=== PATIENT | male | born 1975 | race Caucasian/White ===

== ENCOUNTER 2019-05-17 17:42 | Outpatient (REF) | payer OTHER, SELFPAY ==
[2019-05-17 21:17] LABS: Abs Immature Grans 0.03 k/cumm (0.0-0.09); Absolute Basophil Count 0.06 k/cumm (0.0-0.2); Absolute Eosinophil Count 0.71 k/cumm (0.0-0.7); Absolute Lymphocyte Count 3.01 k/cumm (1.2-3.4); Absolute Monocyte Count 0.72 k/cumm (0.11-0.7); Absolute Neutrophil Count 4.72 k/cumm (1.2-6.7); Basophils % 0.6; Eosinophils % 7.7; HCT 48.1 % (40.0-50.0); Immature Grans % 0.3; Lymphocytes % 32.5; Mean Corp. HGB Concentration 33.3 g/dL (32.0-36.0); Mean Corpuscular Hemoglobin 29.3 pg (27.0-33.0); Mean Corpuscular Volume 87.9 fL (80-95); Mean Platelet Volume 11.3 fL (8.0-11.0); Monocytes % 7.8; Neutrophils % 51.1; Platelet Count 283 x1000/uL (130-400); RBC 5.47 m/cumm (4.50-6.00); RBC Distribution Width 13.7 % (11.8-14.1); White Blood Cell Count 9.25 k/cumm (4.4-10.8)
[2019-05-17 21:37] LABS: ALT 44 U/L (16-63); AST 29 U/L (15-37); Albumin 3.8 g/dL (3.4-5.0); Alkaline Phosphatase 76 U/L (46-116); Anion Gap 7.5 mmol/L (3-11); BUN 12 mg/dL (7-18); Bilirubin, Total 0.3 mg/dL (0.2-1.0); CO2 28.5 mmol/L (21.0-32.0); CREATININE 1.08 mg/dL (0.70-1.30); Calcium 9.3 mg/dL (8.5-10.1); Calculated LDL 131 mg/dL; Chloride 106 mmol/L (98-107); Cholesterol 199 mg/dL (50-200); Glucose 100 mg/dL (70-100); HDL Cholesterol 44 mg/dL (40-60); Potassium 4.6 mmol/L (3.5-5.1); Sodium 142 mmol/L (136-145); Triglyceride 123 mg/dL (30-150)
== END 2019-05-17 18:02 ==
LOC: NCHCN 17:42
PROVIDERS: Visit Provider Internal Medicine
DX: L40.9 Psoriasis, unspecified (principal); Z13.220 Encounter for screening for lipoid disorders; Z13.228 Encounter for screening for other metabolic disorders
CPT/HCPCS: 80053; 80061; 85025

== ENCOUNTER 2019-08-15 21:57 | Outpatient (REF) | payer OTHER, SELFPAY ==
[2019-08-15 21:43] LABS: HCT 45.5 % (40.0-50.0); HGB 15.2 g/dL (13.5-17.5); Mean Corp. HGB Concentration 33.4 g/dL (32.0-36.0); Mean Corpuscular Hemoglobin 29.4 pg (27.0-33.0); Mean Platelet Volume 11.7 fL (8.0-11.0); Platelet Count 291 x1000/uL (130-400); RBC 5.17 m/cumm (4.50-6.00); RBC Distribution Width 13.6 % (11.8-14.1); White Blood Cell Count 10.17 k/cumm (4.4-10.8)
[2019-08-15 21:58] LABS: ALT 28 U/L (16-63); AST 20 U/L (15-37); Albumin 3.8 g/dL (3.4-5.0); Alkaline Phosphatase 73 U/L (46-116); Anion Gap 6.3 mmol/L (3-11); BUN 14 mg/dL (7-18); Bilirubin, Total 0.3 mg/dL (0.2-1.0); CO2 29.7 mmol/L (21.0-32.0); CREATININE 1.15 mg/dL (0.70-1.30); Chloride 107 mmol/L (98-107); Glucose 98 mg/dL (74-106); Potassium 4.1 mmol/L (3.5-5.1); Sodium 143 mmol/L (136-145); Total Protein 6.6 g/dL (6.4-8.2)
== END 2019-08-15 22:17 ==
LOC: NCHCN 21:57
PROVIDERS: Visit Provider Nurse Practitioner Family
DX: L40.9 Psoriasis, unspecified (principal)
CPT/HCPCS: 80053; 85027

== ENCOUNTER 2020-02-22 13:12 | Outpatient (REF) | payer OTHER, SELFPAY ==
[2020-02-22 21:32] LABS: HCT 45.1 % (40.0-50.0); HGB 15.1 g/dL (13.5-17.5); MCH 29.5 pg (27.0-33.0); MCHC 33.5 % (32.0-36.0); MCV 88.3 fL (80-95); MPV 11.9 fL (8.0-11.0); Platelet Count 260 10^3/uL (130-400); RBC 5.11 10^6/uL (4.36-5.78); RDW 13.5 % (11.8-14.1); RDW-SD 43.4 fL; WBC 7.84 10^3/uL (4.4-10.8)
[2020-02-22 21:44] LABS: ALT 42 U/L (16-63); AST 29 U/L (15-37); Albumin 3.8 g/dL (3.4-5.0); Alkaline Phosphatase 65 U/L (46-116); Anion Gap 9.9 mmol/L (3-11); BUN 11 mg/dL (7-18); Bilirubin, Total 0.3 mg/dL (0.2-1.0); CO2 26.1 mmol/L (21.0-32.0); CREATININE 1.14 mg/dL (0.70-1.30); Calcium 8.9 mg/dL (8.5-10.1); Chloride 104 mmol/L (98-107); Glucose 128 mg/dL (74-106); Potassium 3.9 mmol/L (3.5-5.1); Sodium 140 mmol/L (136-145); Total Protein 6.6 g/dL (6.4-8.2)
== END 2020-02-22 13:32 ==
LOC: NCHCN 13:12
PROVIDERS: PCP Internal Medicine; Visit Provider Internal Medicine
DX: Z51.81 Encounter for therapeutic drug level monitoring (principal)
CPT/HCPCS: 80053; 85027

== ENCOUNTER 2020-04-07 09:53 | Outpatient (REF) | payer OTHER, SELFPAY ==
[2020-04-10 12:49] LABS: SARS-CoV-2 RNA Undetected (Undetected); SARS-CoV-2 Specimen Source Nasopharynx
== END 2020-04-07 10:13 ==
LOC: NCHCN 09:53
PROVIDERS: PCP Internal Medicine; Visit Provider Internal Medicine
DX: Z11.59 Encounter for screening for other viral diseases (principal)
CPT/HCPCS: U0003

== ENCOUNTER 2020-05-27 16:02 | Outpatient (REF) | payer OTHER, SELFPAY ==
[2020-05-27 20:50] LABS: Abs Immature Grans 0.03 10^3/uL (0.0-0.06); Absolute Basophil Count 0.06 10^3/uL (0.0-0.2); Absolute Eosinophil Count 0.35 10^3/uL (0.0-0.7); Absolute Lymphocyte Count 2.79 10^3/uL (1.2-3.4); Absolute Monocyte Count 0.73 10^3/uL (0.1-0.8); Absolute Neutrophil Count 4.08 10^3/uL (1.2-6.7); Basophils % 0.7; Eosinophils % 4.4; HCT 46.4 % (40.0-50.0); HGB 15.2 g/dL (13.5-17.5); Immature Grans % 0.4; Lymphocytes % 34.7; MCH 29.3 pg (27.0-33.0); MCHC 32.8 % (32.0-36.0); MCV 89.4 fL (80-95); MPV 11.6 fL (8.0-11.0); Monocytes % 9.1; Neutrophils % 50.7; Nucleated RBC 0 %; Platelet Count 267 10^3/uL (130-400); RBC 5.19 10^6/uL (4.36-5.78); RDW 12.7 % (11.8-14.1); RDW-SD 41.9 fL; WBC 8.04 10^3/uL (4.4-10.8)
[2020-05-27 21:13] LABS: ALT 38 U/L (16-63); AST 26 U/L (15-37); Albumin 3.7 g/dL (3.4-5.0); Alkaline Phosphatase 69 U/L (46-116); Anion Gap 9.3 mmol/L (3-11); BUN 11 mg/dL (7-18); Bilirubin, Total 0.4 mg/dL (0.2-1.0); CO2 24.7 mmol/L (21.0-32.0); Calcium 8.8 mg/dL (8.5-10.1); Chloride 104 mmol/L (98-107); Glucose 110 mg/dL (74-106); Potassium 4.2 mmol/L (3.5-5.1); Sodium 138 mmol/L (136-145); Total Protein 6.5 g/dL (6.4-8.2)
== END 2020-05-27 16:22 ==
LOC: NCHCN 16:02
PROVIDERS: PCP Internal Medicine; Visit Provider Internal Medicine
DX: Z51.81 Encounter for therapeutic drug level monitoring (principal); L40.9 Psoriasis, unspecified
CPT/HCPCS: 80053; 85025

== ENCOUNTER 2020-09-08 16:28 | Outpatient (REF) | payer OTHER, SELFPAY ==
[2020-09-08 13:21] LABS: Abs Immature Grans 0.01 10^3/uL (0.0-0.06); Absolute Basophil Count 0.06 10^3/uL (0.0-0.2); Absolute Eosinophil Count 0.33 10^3/uL (0.0-0.7); Absolute Lymphocyte Count 3.07 10^3/uL (1.2-3.4); Absolute Monocyte Count 0.64 10^3/uL (0.1-0.8); Absolute Neutrophil Count 3.44 10^3/uL (1.2-6.7); Basophils % 0.8; Eosinophils % 4.4; HCT 46.8 % (40.0-50.0); HGB 15.4 g/dL (13.5-17.5); Immature Grans % 0.1; Lymphocytes % 40.7; MCH 29.3 pg (27.0-33.0); MCHC 32.9 % (32.0-36.0); MCV 89.1 fL (80-95); MPV 11.1 fL (8.0-11.0); Monocytes % 8.5; Neutrophils % 45.5; Nucleated RBC 0 %; Platelet Count 272 10^3/uL (130-400); RBC 5.25 10^6/uL (4.36-5.78); RDW 13.2 % (11.8-14.1); RDW-SD 42.6 fL; WBC 7.55 10^3/uL (4.4-10.8)
[2020-09-08 13:36] LABS: ALT 38 U/L (16-63); AST 22 U/L (15-37); Albumin 3.7 g/dL (3.4-5.0); Alkaline Phosphatase 83 U/L (46-116); Anion Gap 7.5 mmol/L (3-11); BUN 12 mg/dL (7-18); Bilirubin, Total 0.3 mg/dL (0.2-1.0); CO2 25.5 mmol/L (21.0-32.0); CREATININE 1.1 mg/dL (0.70-1.30); Chloride 106 mmol/L (98-107); Glucose 127 mg/dL (74-106); Sodium 139 mmol/L (136-145); Total Protein 6.5 g/dL (6.4-8.2)
== END 2020-09-08 16:29 | disposition home or self-care (01) ==
LOC: NCHCN 16:28
PROVIDERS: PCP Internal Medicine; Visit Provider Internal Medicine
DX: Z51.81 Encounter for therapeutic drug level monitoring (principal); L40.9 Psoriasis, unspecified
CPT/HCPCS: 80053; 85025

== ENCOUNTER 2023-03-17 08:14 | Outpatient (REF) | payer BC, SELFPAY ==
--- OUTSIDE RECORDS SUMMARY | 2023-03-17 08:23 | XMS_ITS | CCD ---
Author Name Unknown Address [address] [place] [address] [phone] Organization Unknown Address [address] [place] [address] [phone] Care Team Providers Care Member Service Specialist Name Role Phone SUELLEN PIERRE Attending Physician [phone] Vital Signs Unknown or Not Available. Allergies Unknown or Not Available. Procedures Unknown or Not Available. History of Immunizations Unknown or Not Available. Problems Problem Code Start Date Resolved Date Status Psoriasis [id number] 03/15/2023 Resolved Results COMPREHENSIVE METABOLIC PANE L (CMP) - Collect Date/Time: 11/05/2022 16:14 Test Name Code Test Result Test Units Test Ref Rang e GLUCOSE 2345-7 118 mg/dL L=70 H=116 BUN 3094-0 20 mg/dL L=6 H=25 CREATININE 2160-0 1.13 mg/dL L=0.67 H=1.17 SODIUM SERUM 2951-2 139 mmol/L L=136 H=145 POTASSIUM SERUM 2823-3 4.2 mmol/L L=3.4 H=5 .2 CHLORIDE SERUM 2075-0 103 mmol/L L=96 H=110 CARBON DIOXIDE (CO2) 2028-9 25 mmol/L L=22 H=34 ANION GAP 47314-0 11.0 mmol/L CALCIUM SERUM 89766-4 9.0 mg/dL L=8.2 H=10. 2 BILIRUBIN TOTAL 1975-2 0.5 mg/dL L=0.0 H=1 .3 ALK. PHOS. 6768-6 69 U/L L=46 H=116 SGOT (AST) 1920-8 23 U/L L=15 H=37 SGPT (ALT) 1742-6 31 U/L L=12 H=78 TOTAL PROTEIN 2885-2 6.7 gm/dL L=6.0 H=8.0 ALBUMIN 1751-7 3.8 gm/dL L=3.4 H=5.0 AGE 47 years eGFR (non-Afr.Amer.) 20820-8 70 mL/min eGFR (Afr-Palauan) 22412-4 85 mL/min CBC W/ DIFFERENTIAL* - [facility] ct Date/Time: 11/05/2022 16:14 Test Name Code Test Result Test Units Test Ref Rang e WBC 6690-2 9.21 th/cmm L=5.00 H=10.00 NEUT % 46.1 % L=40.0 H=80.0 LYMPH % 42.8 % L=10.0 H=50.0 MONO % 40717-4 6.8 % L=2.0 H=12.0 EOS % 3.4 % L=0.0 H=8.0 BASO % 0.7 % L=0.0 H=3.0 IG % 2514-8 0.2 % L=0.0 H=1.1 NRBC % 71441-2 0.0 % L=0.0 H=0.0 NEUT abs count 751-8 4.3 th/cmm L=1.6 H=8. 4 LYMPH abs count 731-0 3.9 th/cmm L=1.5 H=4 .0 MONO abs count 742-7 0.6 th/cmm L=0.2 H=1. 0 EOS abs count 711-2 0.3 th/cmm L=0.0 H=0.5 BASO abs count 704-7 0.1 th/cmm L=0.0 H=0. 2 IG abs count 03631-7 0.0 th/cmm L=0.0 H=0.1 NRBC abs count 48242-7 0.0 mil/cmm L=0.0 H=0. 0 RBC 789-8 5.32 mil/cmm L=4.30 H=6.20 HEMOGLOBIN 718-7 15.3 gm/dL L=13.0 H=17.0 HEMATOCRIT 4544-3 46 % L=45 H=52 MCV 787-2 86 fL L=82 H=92 MCH 785-6 28.8 pg L=27.0 H=31.0 MCHC 786-4 33.4 % L=32.0 H=36.0 RDW-SD 788-0 40.0 fL L=39.0 H=49.0 PLATELET COUNT 777-3 262 th/cmm L=150 H=45 0 Active Medications Unknown or Not Available. Medications Administered During Visit Unknown or Not Available. Encounters Encounter Diagnosis Diagnosis Code Start Date Psoriasis 1908399 11/05/2022 Social History Smoking Status Code Start Date End Date Unknown if ever smoked [id number] Patient Decision Aids Unknown or Not Available. Discharge Instructions You were admitted to [facility] on 11/05/2022 16:09 with a principal diagnosis of Psoriasis, unspecified You had the following tests done:CBC W/ DIFFERENTIAL*COMPREHENSIVE METABOLIC PANEL (CMP) You were discharged from [facility] on 11/05/2022 16:09 Should you have any questions prior to discharge, please contact a member of your healthcare team. If you have left the hospital and have any questions, please contact your primary care physician. Chief Complaint and Reason For Visit Unknown or Not Available. Function Status Unknown or Not Available. Plan of Care Unknown or Not Available. Referral/Transition of Care Unknown or Not Available.
--- OUTSIDE RECORDS SUMMARY | 2023-03-17 08:23 | XMS_ITS | CCD ---
Author Name Unknown Address [address] [place] [address] [phone] Organization Unknown Address [address] [place] [address] [phone] Care Team Providers Care Display Coordinator Name Role Phone ZULAY ALVARADO Attending Physician [phone] ZULAY ALVARADO Er Physician [phone] DEV Plunkett Registered Nurse [phone] Vital Signs Vital Sign Value Unit Date/Time Recent/Initial ? BMI (Body Mass Index) 26.25 kg/m^2 03/15/2023 16: 47 Initial VS Weight Measured 210 lbs 03/15/2023 16:47 Ini tial VS Height 75 in 03/15/2023 16:47 Initial VS BSA (Body Surface Area) 2.25 m^2 03/15/2023 1 6:47 Initial VS BP Systolic 151 mmHg 03/15/2023 16:47 Initial VS BP Diastolic 93 mmHg 03/15/2023 16:47 Initia l VS Respiratory Rate 18 bpm 03/15/2023 16:47 In itial VS Heart Rate 81 bpm 03/15/2023 16:47 Initial VS O2 % BldC Oximetry 99 % 03/15/2023 16:47 Initial VS Body Temperature 36.8 degrees 03/15/2023 16:47 In itial VS Allergies Allergy Code Allergy Type Reaction Status No Known Drug Allergies 0 No known drug allergies Active Procedures Unknown or Not Available. History of Immunizations Unknown or Not Available. Problems Problem Code Start Date Resolved Date Status Psoriasis 4189051 03/15/2023 Resolved Results Unknown or Not Available. Active Medications Unknown or Not Available. Medications Administered During Visit Unknown or Not Available. Encounters Unknown or Not Available. Social History Smoking Status Code Start Date End Date Unknown if ever smoked 828053168 Patient Decision Aids Unknown or Not Available. Discharge Instructions You were admitted to [facility] on 03/15/2023 16:32 You were discharged from [facility] on 03/15/2023 17:51 Should you have any questions prior to discharge, please contact a member of your healthcare team. If you have left the hospital and have any questions, please contact your primary care physician. Chief Complaint and Reason For Visit Chief Complaint Date of Onset LT ANKLE INJURY Function Status Unknown or Not Available. Plan of Care Unknown or Not Available. Referral/Transition of Care Unknown or Not Available.
[2023-03-17 15:48] LABS: HCT 45.7 % (40.0-50.0); HGB 15.7 g/dL (13.5-17.5); MCH 30.6 pg (27.0-33.0); MCHC 34.4 % (32.0-36.0); MCV 89 fL (80-95); MPV 11.6 fL (8.0-11.0); Platelet Count 260 10^3/uL (130-400); RBC 5.13 10^6/uL (4.36-5.78); RDW 13.4 % (11.8-14.1); RDW-SD 43.6 fL; WBC 9.86 10^3/uL (4.4-10.8)
[2023-03-17 16:48] LABS: ALT 33 U/L (16-63); AST 24 U/L (15-37); Albumin 3.5 g/dL (3.4-5.0); Alkaline Phosphatase 68 U/L (46-116); Anion Gap 8.2 mmol/L (3-11); BUN 18 mg/dL (7-18); Bilirubin, Total 0.4 mg/dL (0.2-1.0); CO2 24.8 mmol/L (21.0-32.0); Calculated LDL 123 mg/dL (<100); Chloride 106 mmol/L (98-107); Cholesterol 181 mg/dL (<200); Estimated GFR 94.59 (mL/min/1.73m2); Glucose 105 mg/dL (74-106); HDL Cholesterol 47 mg/dL (40-60); Potassium 4.2 mmol/L (3.5-5.1); Sodium 139 mmol/L (136-145); Total Protein 6.8 g/dL (6.4-8.2); Triglyceride 57 mg/dL (<150)
== END 2023-03-17 08:15 | disposition home or self-care (01) ==
LOC: NCHCN 08:14
PROVIDERS: PCP Internal Medicine; Visit Provider Internal Medicine
DX: E78.5 Hyperlipidemia, unspecified (principal); F17.210 Nicotine dependence, cigarettes, uncomplicated; Z51.81 Encounter for therapeutic drug level monitoring
CPT/HCPCS: 80053; 80061; 85027

== ENCOUNTER 2023-08-01 11:28 | Outpatient (REF) | payer BC, SELFPAY ==
--- OUTSIDE RECORDS SUMMARY | 2023-08-01 11:31 | XMS_ITS | CCD ---
Author Name Unknown Address [address] [place] [address] [phone] Organization Unknown Address [address] [place] [address] [phone] Care Team Providers Care Texture Artist Name Role Phone SUELLEN PIERRE Attending Physician [phone] Vital Signs Unknown or Not Available. Allergies Unknown or Not Available. Procedures Unknown or Not Available. History of Immunizations Unknown or Not Available. Problems Problem Code Start Date Resolved Date Status Psoriasis 0189314 03/15/2023 Resolved Results COMPREHENSIVE METABOLIC PANE L [...] 2028-9 25 mmol/L L=22 H=34 ANION GAP 71096-7 11.0 mmol/L CALCIUM SERUM 77275-3 9.0 mg/dL L=8.2 H=10. 2 BILIRUBIN TOTAL 1975-2 0.5 mg/dL L=0.0 H=1 .3 ALK. PHOS. 6768-6 69 U/L L=46 H=116 SGOT (AST) 1920-8 23 U/L L=15 H=37 SGPT (ALT) 1742-6 31 U/L L=12 H=78 TOTAL PROTEIN 2885-2 6.7 gm/dL L=6.0 H=8.0 ALBUMIN 1751-7 3.8 gm/dL L=3.4 H=5.0 AGE 47 years eGFR (non-Afr.Amer.) 31750-9 70 mL/min eGFR (Afr-Tongan) 41276-7 85 mL/min CBC W/ DIFFERENTIAL* - [facility] ct Date/Time: 11/05/2022 16:14 Test Name Code Test Result Test Units Test Ref Rang e WBC 6690-2 9.21 th/cmm L=5.00 H=10.00 NEUT % 46.1 % L=40.0 H=80.0 LYMPH % 42.8 % L=10.0 H=50.0 MONO % 47846-0 6.8 % L=2.0 H=12.0 EOS % 3.4 % L=0.0 H=8.0 BASO % 0.7 % L=0.0 H=3.0 IG % 2514-8 0.2 % L=0.0 H=1.1 NRBC % 03159-3 0.0 % L=0.0 H=0.0 NEUT abs count 751-8 4.3 th/cmm L=1.6 H=8. 4 LYMPH abs count 731-0 3.9 th/cmm L=1.5 H=4 .0 MONO abs count 742-7 0.6 th/cmm L=0.2 H=1. 0 EOS abs count 711-2 0.3 th/cmm L=0.0 H=0.5 BASO abs count 704-7 0.1 th/cmm L=0.0 H=0. 2 IG abs count 27556-5 0.0 th/cmm L=0.0 H=0.1 NRBC abs count 88063-1 0.0 mil/cmm L=0.0 H=0. 0 RBC 789-8 5.32 mil/cmm L=4.30 H=6.20 HEMOGLOBIN 718-7 15.3 gm/dL L=13.0 H=17.0 HEMATOCRIT 4544-3 46 % L=45 H=52 MCV 787-2 86 fL L=82 H=92 MCH 785-6 28.8 pg L=27.0 H=31.0 MCHC 786-4 33.4 % L=32.0 H=36.0 RDW-SD 788-0 40.0 fL L=39.0 H=49.0 PLATELET COUNT 777-3 262 th/cmm L=150 H=45 0 Active Medications Medication Code Dose Units Frequency Route Modificatio n Start Date/Time Penicillin VK 500MG Oral Tablet 752934 1 TABLET THREE TIMES A DAY ORAL 06/16/2023 22:31 Prescription Detail TAKE 1 TABLET ORAL THREE TIMES A DAY Medications Administered During Visit Unknown or Not Available. Encounters Encounter Diagnosis Diagnosis Code Start Date Psoriasis 7659658 11/05/2022 Social History Smoking Status Code Start Date End Date Unknown if ever smoked 898344823 Patient Decision Aids Unknown or Not Available. Discharge Instructions You were admitted to [facility] on 11/05/2022 16:09 with a principal diagnosis of Psoriasis, unspecified You had the following tests done:CBC W/ DIFFERENTIAL*COMPREHENSIVE METABOLIC PANEL (CMP) You were discharged from [facility] on 11/05/2022 16:09 Should you have [...]
--- OUTSIDE RECORDS SUMMARY | 2023-08-01 11:31 | XMS_ITS | CCD ---
Author Name Unknown Address [address] [place] [address] [phone] Organization Unknown Address [address] [place] [address] [phone] Care Team Providers Care Woven Wood Shade Assembler Name Role Phone ZULAY ALVARADO Attending Physician [phone] ZULAY ALVARADO Er Physician 6 [phone] DEV Plunkett Registered Nurse [phone] Vital Signs Vital Sign Value Unit Date/Time [...] Code Start Date Resolved Date Status Psoriasis 2045218 03/15/2023 Resolved Results Unknown or Not Available. Active Medications Unknown or Not Available. Medications Administered During Visit Unknown or Not Available. Encounters Encounter Diagnosis Diagnosis Code Start Date Sprain of unspecified ligame nt of left ankle, initial encounter [id number] 03/15/2023 Social History Smoking Status Code Start Date End Date Unknown if ever smoked 646836318 Patient Decision Aids Unknown or Not Available. Discharge Instructions You were admitted to [facility] on 03/15/2023 16:32 with a principal diagnosis of Sprain of unspecified ligament of left ankle, initial encounter You were discharged from [facility] on 03/15/2023 17:51 Should you have [...]
--- OUTSIDE RECORDS SUMMARY | 2023-08-01 11:31 | XMS_ITS | CCD ---
Author Name Unknown Address [address] [place] [address] [phone] Organization Unknown Address [address] [place] [address] [phone] Care Team Providers Care Truck Assembler Name Role Phone EDISON AMIN Attending Physician [phone] EDISON AMIN Er Physician 1 [phone] ARIAS Haynes Registered Nurse [phone] Vital Signs Vital Sign Value Unit Date/Time Recent/Initial ? BMI (Body Mass Index) 26.25 kg/m^2 06/16/2023 22: 13 Initial VS Weight Measured 210 lbs 06/16/2023 22:13 Ini tial VS Height 75 in 06/16/2023 22:13 Initial VS BSA (Body Surface Area) 2.25 m^2 06/16/2023 2 2:13 Initial VS BP Systolic 135 mmHg 06/16/2023 22:13 Initial VS BP Diastolic 102 mmHg 06/16/2023 22:13 Initia l VS Respiratory Rate 14 bpm 06/16/2023 22:13 In itial VS Heart Rate 111 bpm 06/16/2023 22:13 Initial VS O2 % BldC Oximetry 99 % 06/16/2023 22:13 Initial VS Body Temperature 36.5 degrees 06/16/2023 22:13 In itial VS BP Systolic 137 mmHg 06/16/2023 22:44 Most Re cent VS BP Diastolic 92 mmHg 06/16/2023 22:44 Most R ecent VS Respiratory Rate 16 bpm 06/16/2023 22:[address] Recent VS Heart Rate 92 bpm 06/16/2023 22:44 Most Rec ent VS O2 % BldC Oximetry 97 % 06/16/2023 22:44 Most Recent VS Allergies Allergy Code Allergy Type Reaction Status No Known Drug Allergies 0 No known drug allergies Active Procedures Unknown or Not Available. History of Immunizations Unknown or Not Available. Problems Unknown or Not Available. Results Unknown or Not Available. Active Medications Medication Code Dose Units Frequency Route Modificatio n Start Date/Time ER-PENICILLIN VK 4 PACK: 500MG 214440 500 MG QID PO 06/16/20 22:38 Medications Administered During Visit Medication Dose Units Frequency Route Date/Time of Last Dose ER-PENICILLIN VK 4 PACK: 500MG 500 MG QID PO 06/16/2023 22:43 Encounters Encounter Diagnosis Diagnosis Code Start Date Periapical abscess 580068229 06/16/2023 Social History Smoking Status Code Start Date End Date Current some day smoker [id number] Patient Decision Aids Unknown or Not Available. Discharge Instructions You were admitted to [facility] on 06/16/2023 22:06 with a principal diagnosis of Periapical abscess without sinus You were discharged from [facility] on 06/16/2023 22:45 Should you have any questions prior to discharge, please contact a member of your healthcare team. If you have left the hospital and have any questions, please contact your primary care physician. Chief Complaint and Reason For Visit Chief Complaint Date of Onset TOOTH ISSUE Function Status Unknown or Not Available. Plan of Care Unknown or Not Available. Referral/Transition of Care Unknown or Not Available.
[2023-08-01 14:59] LABS: HCT 46.8 % (40.0-50.0); HGB 15.5 g/dL (13.5-17.5); MCHC 33.1 % (32.0-36.0); MCV 88 fL (80-95); MPV 10.8 fL (8.0-11.0); Platelet Count 271 10^3/uL (130-400); RBC 5.35 10^6/uL (4.36-5.78); RDW 12.5 % (11.8-14.1); RDW-SD 40.2 fL; WBC 10.05 10^3/uL (4.4-10.8)
[2023-08-01 15:23] LABS: ALT 30 U/L (16-63); AST 26 U/L (15-37); Albumin 3.6 g/dL (3.4-5.0); Alkaline Phosphatase 76 U/L (46-116); Anion Gap 7.4 mmol/L (3-11); BUN 15 mg/dL (7-18); Bilirubin, Total 0.4 mg/dL (0.2-1.0); CO2 25.6 mmol/L (21.0-32.0); CREATININE 1.1 mg/dL (0.70-1.30); Calcium 8.9 mg/dL (8.5-10.1); Chloride 104 mmol/L (98-107); Estimated GFR 83.84 (mL/min/1.73m2); Glucose 120 mg/dL (74-106); Sodium 137 mmol/L (136-145); Total Protein 6.9 g/dL (6.4-8.2)
== END 2023-08-01 11:29 | disposition home or self-care (01) ==
LOC: NCHCN 11:28
PROVIDERS: PCP Internal Medicine; Visit Provider Internal Medicine
DX: Z51.81 Encounter for therapeutic drug level monitoring (principal)
CPT/HCPCS: 80053; 85027

== ENCOUNTER 2023-10-26 08:06 | Outpatient (REF) | payer SELFPAY ==
[2023-10-26 15:41] LABS: HCT 47.3 % (40.0-50.0); HGB 16.2 g/dL (13.5-17.5); MCH 29.7 pg (27.0-33.0); MCHC 34.2 % (32.0-36.0); MCV 87 fL (80-95); MPV 11.1 fL (8.0-11.0); Platelet Count 258 10^3/uL (130-400); RBC 5.45 10^6/uL (4.36-5.78); RDW 13.5 % (11.8-14.1); RDW-SD 42.4 fL; WBC 7.88 10^3/uL (4.4-10.8)
[2023-10-26 16:04] LABS: ALT 38 U/L (16-63); AST 27 U/L (15-37); Albumin 3.5 g/dL (3.4-5.0); Alkaline Phosphatase 81 U/L (46-116); Anion Gap 7.4 mmol/L (3-11); BUN 15 mg/dL (7-18); Bilirubin, Total 0.4 mg/dL (0.2-1.0); CO2 27.6 mmol/L (21.0-32.0); Calcium 8.9 mg/dL (8.5-10.1); Chloride 108 mmol/L (98-107); Glucose 111 mg/dL (74-106); Potassium 5.1 mmol/L (3.5-5.1); Sodium 143 mmol/L (136-145); Total Protein 6.7 g/dL (6.4-8.2)
[2023-10-26 16:13] LABS: Hemoglobin A1C 5.9 % (<5.7)
== END 2023-10-26 08:07 | disposition home or self-care (01) ==
LOC: NCHCN 08:06
PROVIDERS: PCP Internal Medicine; Visit Provider Internal Medicine
DX: R73.9 Hyperglycemia, unspecified (principal); L40.9 Psoriasis, unspecified
CPT/HCPCS: 80053; 85027; 83036

== ENCOUNTER 2024-03-30 18:35 | Outpatient (REF) | payer BC, SELFPAY ==
[2024-03-30 15:06] LABS: ALT 51 U/L (16-63); AST 26 U/L (15-37); Albumin 3.7 g/dL (3.4-5.0); Alkaline Phosphatase 89 U/L (46-116); Anion Gap 6.4 mmol/L (3-11); BUN 14 mg/dL (7-18); Bilirubin, Total 0.34 mg/dL (0.2-1.0); CO2 28.6 mmol/L (21.0-32.0); CREATININE 1.1 mg/dL (0.70-1.30); Calculated LDL 140 mg/dL (<100); Chloride 104 mmol/L (98-107); Cholesterol 202 mg/dL (<200); Estimated GFR 83.84 (mL/min/1.73m2); Glucose 115 mg/dL (74-106); HDL Cholesterol 53 mg/dL (40-60); Potassium 4.2 mmol/L (3.5-5.1); Sodium 139 mmol/L (136-145); Total Protein 6.9 g/dL (6.4-8.2); Triglyceride 46 mg/dL (<150)
--- OUTSIDE RECORDS SUMMARY | 2024-03-30 18:44 | XMS_ITS ---
Author Organization Unknown Address [address] [place] [address] [phone] Phone Care Team Providers Care Industrial Paramedic Name Role Phone DEV GILL Registered Nurse Unavailable CHRISTIANO Pardo Attending Unavailable IGNACIO Weldon Primary Unavailable UNLISTED PROVIDER - REQUESTED Xhandoff Un available Results XR ANKLE LT 3V* - Completed: 03/15/2023 17:00 LOINC: [place], [place] [address] PACS FINANCIAL OPERATIONS CONSULTANT REPORT Patient Name: HORACE STAUFFER MRN: Sex: : Age: [id number] M 1975 47 Account: Accession: Admit: StayType: [id number] 03/15/2023 E/R Ordered: Order ID: Submitted: Ordering Provider: 03/15/2023 16:48 [id number] ZULAY WONG Completed: Technologist: Resulted: 03/15/2023 17:00 KVK 03/15/2023 17:26 Study Description: XR ANKLE LT 3V Study Reason: Trauma Technique: 2D digital imaging was performed. 3 images were obtained. COMPARISON: None. FINDINGS: Bones: On the oblique view there is in the lucency through the lateral aspect of the distal tibia. Fracture versus artifact. No bony destructive lesion is seen. Joints: No dislocation is present. The joint spaces are well maintained. Soft tissues: Soft tissue swelling about the ankle particularly laterally. IMPRESSION: 1. On the oblique view there is an oblique lucency in the lateral aspect of the distal tibia. Artifact versus fracture. Please correlate clinically. A CT scan of the ankle may be obtained for further evaluation. 2. Soft tissue swelling laterally. Report Digitally Signed by Joao Royal on 03/15/2023 05:26 PM EDT Social History Type Status Start Date End Date Code Code Syst em Smoking History Current some day smoker [id number] SNOMED CT Smoking History Unknown if ever smoked 938635192 SNSCREEMO CT Sex Male Vital Signs Vital Sign Value Unit [place] Value [place] Unit Date/Time Recent/Initial? Code Code System Body Mass Index 26.25 kg/m2 03/15/2023 16:47 Initial 60938 -5 LOINC Systolic Blood Pressure 151 mm[Hg] 03/15/2023 16:47 Initial 8480- 6 LOINC Diastolic Blood Pressure 93 mm[Hg] 03/15/2023 16:47 Initial 8462- 4 LOINC Body Surface Area 2.25 m2 03/15/2023 16:47 Initial 3140- 1 LOINC Height 190.500 0 cm 75.00 in 03/15/2023 16:47 Initial 8302- 2 LOINC O2 Saturation 99 % 2022 16:47 Initial 60917 -5 LOINC Pulse 81.0 /min 03/15/2023 16:47 Initial 8867- 4 LOINC Respiration 18 /min 03/15/20 16:47 Initial 9279- 1 LOINC Temperature 36.8 Citlali 98.2 F 03/15/20 16:47 Initial 8310- 5 LOINC Weight 95.25 kg 210.00 lbs 03/15/2023 16:47 Initial 35044 -7 LOINC Medications Medication Start Date End Date Route Frequency Dose Code Code System Medication Instructions Home Meds Penicillin VK 500MG Oral Tablet 06/16/2023 Unknown ORAL THREE TIMES A DAY 1 TABLET 583182 RxNorm TAKE 1 TABLET ORAL THREE TIMES A DAY Hospital Discharge Instructions Should you have any questions prior to discharge, please contact a member of your healthcare team. If you have left the hospital and have any questions, please contact your primary care physician. Reason For Referral No Data Found Problems Problem Start Date Resolved Date Status Code Code System PSORIASIS 03/15/2023 resolved 4226905 SNOMED-CT Allergies and Adverse Reactions Allergy Substance Reaction Severity Start Date Concern Status Co de Code System No Known Drug Allergies Active 992355087 SNOMED-CT Plan of Treatment No Data Found Encounters Encounter Diagnosis Start Date Code Code Sys tem Sprain of unspecified ligame nt of left ankle, initial encounter 03/15/2023 SNOMED-CT Personal Care Team Section Performer Name Performer Role Active Date Inactive Donell brothers
--- OUTSIDE RECORDS SUMMARY | 2024-03-30 18:44 | XMS_ITS ---
Author Organization Unknown Address [address] [place] [address] [phone] Phone Care Team Providers Care Assessment Manager Name Role Phone IGNACIO Weldon Attending Unavailable Results COMPREHENSIVE METABOLIC VERA Liu (CMP) - Collect Date/Time: 11/05/2022 16:14 [facility] ID: [id number] - [id number] [address] [place], [place], [address] LOINC: 02260-9 Test Value Unit Reference Range Code Code System Flag GLUCOSE 118 mg/dL L=70 H=116 2345-7 LOINC H BUN 20 mg/dL L=6 H=25 3094-0 LOINC CREATININE 1.13 mg/dL L=0.67 H=1.17 2160-0 LOINC SODIUM SERUM 139 mmol/L L=136 H=145 2951-2 LOINC POTASSIUM SERUM 4.2 mmol/L L=3.4 H=5.2 2823-3 LOINC CHLORIDE SERUM 103 mmol/L L=96 H=110 2075-0 LOINC CARBON DIOXIDE (CO2) 25 mmol/L L=22 H=34 2028-9 LOINC ANION GAP 11.0 mmol/L 88388-9 LOINC CALCIUM SERUM 9.0 mg/dL L=8.2 H=10.2 18450-9 LOINC BILIRUBIN TOTAL 0.5 mg/dL L=0.0 H=1.3 1975-2 LOINC ALK. PHOS. 69 U/L L=46 H=116 6768-6 LOINC SGOT (AST) 23 U/L L=15 H=37 1920-8 LOINC SGPT (ALT) 31 U/L L=12 H=78 1742-6 LOINC TOTAL PROTEIN 6.7 gm/dL L=6.0 H=8.0 2885-2 LOINC ALBUMIN 3.8 gm/dL L=3.4 H=5.0 1751-7 LOINC AGE 47 years eGFR (non-Afr.Amer.) 70 mL/min 50213-6 LOINC eGFR (Afr-Surinamese) 85 mL/min 97433-9 LOINC CBC W/ DIFFERENTIAL* - [facility] ct Date/Time: 11/05/2022 16:14 [facility] ID: [id number] [address] [place], [place], [address] LOINC: 76760-4 Test Value Unit Reference Range Code Code System Flag WBC 9.21 th/cmm L=5.00 H=10.00 6690-2 LOINC NEUT % 46.1 % L=40.0 H=80.0 LYMPH % 42.8 % L=10.0 H=50.0 MONO % 6.8 % L=2.0 H=12.0 88484-7 LOINC EOS % 3.4 % L=0.0 H=8.0 BASO % 0.7 % L=0.0 H=3.0 IG % 0.2 % L=0.0 H=1.1 2514-8 LOINC NRBC % 0.0 % L=0.0 H=0.0 62584-0 LOINC NEUT abs count 4.3 th/cmm L=1.6 H=8.4 751-8 LOINC LYMPH abs count 3.9 th/cmm L=1.5 H=4.0 731-0 LOINC MONO abs count 0.6 th/cmm L=0.2 H=1.0 742-7 LOINC EOS abs count 0.3 th/cmm L=0.0 H=0.5 711-2 LOINC BASO abs count 0.1 th/cmm L=0.0 H=0.2 704-7 LOINC IG abs count 0.0 th/cmm L=0.0 H=0.1 75263-1 LOINC NRBC abs count 0.0 mil/cmm L=0.0 H=0.0 04984-7 LOINC RBC 5.32 mil/cmm L=4.30 H=6.20 789-8 LOINC HEMOGLOBIN 15.3 gm/dL L=13.0 H=17.0 718-7 LOINC HEMATOCRIT 46 % L=45 H=52 4544-3 LOINC MCV 86 fL L=82 H=92 787-2 LOINC MCH 28.8 pg L=27.0 H=31.0 785-6 LOINC MCHC 33.4 % L=32.0 H=36.0 786-4 LOINC RDW-SD 40.0 fL L=39.0 H=49.0 788-0 LOINC PLATELET COUNT 262 th/cmm L=150 H=450 777-3 LOINC Social History Type Status Start Date End Date Code Code Syst em Smoking History Current some day smoker 402562756071944 SNOMED CT Smoking History Unknown if ever smoked 459148465 SNOMED CT Sex Male Medications Medication Start Date End Date Route Frequency Dose Code Code System Medication Instructions Home Meds Penicillin VK 500MG Oral Tablet 06/16/2023 Unknown ORAL THREE TIMES A DAY 1 TABLET 531235 RxNorm TAKE 1 TABLET ORAL THREE TIMES A DAY Hospital Discharge Instructions Should you have any questions prior to discharge, please contact a member of your healthcare team. If you have left the hospital and have any questions, please contact your primary care physician. Reason For Referral No Data Found Problems Problem Start Date Resolved Date Status Code Code System PSORIASIS 03/15/2023 resolved 7439011 SNOMED-CT Allergies and Adverse Reactions Allergy Substance Reaction Severity Start Date Concern Status Co de Code System No Known Drug Allergies Active 573717176 SNOMED-CT Plan of Treatment No Data Found Encounters Encounter Diagnosis Start Date Code Code Sys tem Psoriasis 11/05/2022 6612015 SNOMED-CT Personal Care Team Section Performer Name Performer Role Active Date Inactive Donell brothers
--- OUTSIDE RECORDS SUMMARY | 2024-03-30 18:44 | XMS_ITS ---
Author Organization Unknown Address [address] [place] [address] [phone] Phone Care Team Providers Care Turner Off Name Role Phone ARIAS VALDES Registered Nurse Unavailable ELOISA Covarrubias Attending Unavailable IGNACIO Weldon Primary Unavailable UNLISTED PROVIDER - REQUESTED Xhandoff Un available Social History Type Status Start Date End Date Code Code Syst em Smoking History Current some day smoker 016414851934247 SNOMED CT Smoking History Unknown if ever smoked 795322667 SNOMED CT Sex Male Vital Signs Vital Sign Value Unit [place] Value [place] Unit Date/Time Recent/Initial? Code Code System Body Mass Index 26.25 kg/m2 06/16/2023 22:13 Initial 14174 -5 LOINC Systolic Blood Pressure 137 mm[Hg] 06/16/2023 22:44 Most Recent 8480- 6 LOINC Diastolic Blood Pressure 92 mm[Hg] 06/16/2023 22:44 Most Recent 8462- 4 LOINC Systolic Blood Pressure 135 mm[Hg] 06/16/2023 22:13 Initial 8480- 6 LOINC Diastolic Blood Pressure 102 mm[Hg] 06/16/2023 22:13 Initial 8462- 4 LOINC Body Surface Area 2.25 m2 06/16/2023 22:13 Initial 3140- 1 LOINC Height 190.500 0 cm 75.00 in 06/16/2023 22:13 Initial 8302- 2 LOINC O2 Saturation 97 % 2022 22:44 Most Recent 31855 -5 LOINC O2 Saturation 99 % 2022 22:13 Initial 73849 -5 LOINC Pulse 92.0 /min 06/16/2023 22:44 Most Recent 8867- 4 LOINC Pulse 111.0 /min 06/16/2023 22:13 Initial 8867- 4 LOINC Respiration 16 /min 06/16/20 22:44 Most Recent 9279- 1 LOINC Respiration 14 /min 06/16/20 22:13 Initial 9279- 1 LOINC Temperature 36.5 Citlali 97.7 F 06/16/20 22:13 Initial 8310- 5 LOINC Weight 95.25 kg 210.00 lbs 06/16/2023 22:13 Initial 38332 -7 LOINC Medications Medication Start Date End Date Route Frequency Dose Code Code System Medication Instructions Home Meds Penicillin VK 500MG Oral Tablet 06/16/2023 Unknown ORAL THREE TIMES A DAY 1 TABLET 263229 RxNorm TAKE 1 TABLET ORAL THREE TIMES A DAY Hospital Discharge Instructions Should you have any questions prior to discharge, please contact a member of your healthcare team. If you have left the hospital and have any questions, please contact your primary care physician. Reason For Referral No Data Found Problems Problem Start Date Resolved Date Status Code Code System PSORIASIS 03/15/2023 resolved 3802765 SNOMED-CT Allergies and Adverse Reactions Allergy Substance Reaction Severity Start Date Concern Status Co de Code System No Known Drug Allergies Active 441427785 SNOMED-CT Plan of Treatment No Data Found Encounters Encounter Diagnosis Start Date Code Code Sys tem Periapical abscess 06/16/2023 011863180 SNOMED-CT Personal Care Team Section Performer Name Performer Role Active Date Inactive Donell brothers
--- OUTSIDE RECORDS SUMMARY | 2024-03-30 18:45 | XMS_ITS ---
Author Organization Unknown Address [address] [place] [address] [phone] Phone Care Team Providers Care Test Puller Name Role Phone AKANKSHA Blanco Attending Unavailable Social History Type Status Start Date End Date Code Code Syst em Smoking History Current some day smoker 672595052510591 SNOMED CT Smoking History Unknown if ever smoked 920515742 SNOMED CT Sex Male Medications Medication Start Date End Date Route Frequency Dose Code Code System Medication Instructions Home Meds Penicillin VK 500MG Oral Tablet 06/16/2023 Unknown ORAL THREE TIMES A DAY 1 TABLET 649588 RxNorm TAKE 1 TABLET ORAL THREE TIMES A DAY Hospital Discharge Instructions Should you have any questions prior to discharge, please contact a member of your healthcare team. If you have left the hospital and have any questions, please contact your primary care physician. Reason For Referral No Data Found Problems Problem Start Date Resolved Date Status Code Code System PSORIASIS 03/15/2023 resolved 4041672 SNOMED-CT Allergies and Adverse Reactions Allergy Substance Reaction Severity Start Date Concern Status Co de Code System No Known Drug Allergies Active 797831723 SNOMED-CT Plan of Treatment No Data Found Encounters Encounter Diagnosis Start Date Code Code Sys tem Screening for malignant neoplasm of cervix 11/29/2023 254670314 SNOMED-CT Personal Care Team Section Performer Name Performer Role Active Date Inactive Da te
--- OUTSIDE RECORDS SUMMARY | 2024-03-30 18:45 | XMS_ITS | Clinical Summary ---
Author Organization [facility] Address [address] [place] [address] Care Team Providers Care Hand Scraper Name Role Phone Lori Basurto Primary Care Provider [phone] Encounters Date Type Department Care Team Description 02/10/2024 Lab Requisition [facility] Pathology & Laboratory [address] [address] Outr Resulting Lab, Provider 02/10/2024 Lab Requisition [facility] Pathology & Laboratory [address] [address] Outr Resulting Lab, Provider 02/10/2024 Lab Requisition [facility] Laboratory [address] [address] Outr Resulting Lab, Provider 02/10/2024 Lab Requisition [facility] Pathology Laboratory [address] [address] Outr Resulting Lab, Provider 02/10/2024 Lab Requisition [facility] Pathology & Laboratory [address] [address] Outr Resulting Lab, Provider from Last 3 Months Social History Tobacco Use Types Packs/Day Years Used Date Smoking Tobacco: Never Assessed Sex and Gender Information Value Date Recorded Sex Assigned at Not on file Gender Identity Not on file Sexual Orientation Not on file Plan of Treatment Health Maintenance Due Date Last Done Comments Hepatitis B Vaccine (1 of - 19+ 3-dose series) 1996 COVID-19 Vaccine ( season) 2023 Hepatitis C Screen Completed 02/10/2024, 01/02/2008 Procedures Procedure Name Priority Date/Time Associated Diagnosis Comments QUANTIFERON INTERPRETATION (PERFORMABLE) Today 02/10/2024 16:06 EDT QUANTIFERON MITOGEN (PERFORMABLE) Today 02/10/2024 16:06 EDT QUANTIFERON TB2 (PERFORMABLE) Today 02/10/2024 16:06 EDT QUANTIFERON TB1 (PERFORMABLE) Today 02/10/2024 16:06 EDT QUANTIFERON NIL (PERFORMABLE) Today 02/10/2024 16:06 EDT QUANTIFERON TB GOLD PLUS Routine 02/10/2024 16:06 EDT HEPATITIS C AB W REFLEX TO HCV RNA BY PCR Routine 02/10/2024 16:06 EDT HEPATITIS B SURFACE ANTIGEN Routine 02/10/2024 16:06 EDT HEPATITIS B SURFACE ANTIBODY Routine 02/10/2024 16:06 EDT HEPATITIS B CORE ANTIBODY (TOTAL) Routine 02/10/2024 16:06 EDT from Last 3 Months Results * QUANTIFERON MITOGEN (PERFORMABLE) (02/10/2024 16:06 EDT) Blood VENOUS BLOOD / Unknown 02/10/2024 16:06 EDT 02/11/2024 21:39 EDT Provider Outr Resulting Lab IMMUNOLOGY A ND SEROLOGY ORDERABLES [facility] [address] [place] [address] * QUANTIFERON TB2 (PERFORMABLE) (02/10/2024 16:06 EDT) Blood VENOUS BLOOD / Unknown 02/10/2024 16:06 EDT 02/11/2024 21:39 EDT Provider Outr Resulting Lab IMMUNOLOGY A ND SEROLOGY ORDERABLES Performing Organization Address [facility] de Phone Number [facility] [address] [place] [address] * QUANTIFERON TB1 (PERFORMABLE) (02/10/2024 16:06 EDT) Blood VENOUS BLOOD / Unknown 02/10/2024 16:06 EDT 02/11/2024 21:39 EDT Provider Outr Resulting Lab IMMUNOLOGY A ND SEROLOGY ORDERABLES Performing Organization Address [facility] Co de Phone Number [facility] [address] [place] [address] * QUANTIFERON NIL (PERFORMABLE) (02/10/2024 16:06 EDT) Blood VENOUS BLOOD / Unknown 02/10/2024 16:06 EDT 02/11/2024 21:39 EDT Provider Outr Resulting Lab IMMUNOLOGY A ND SEROLOGY ORDERABLES Performing Organization Address [facility] Co de Phone Number [facility] [address] [place] [address] * QUANTIFERON INTERPRETATION (PERFORMABLE) (02/10/2024 16:06 EDT) [facility] Quantiferon Interpretation Negative Negative 02/13/2024 12:35 EDT [facility] Comment:No interferon-gamma response to M. tuberculosis antigens was detected. ??Infection with M. tuberculosis is unlikely. A single negative result does not exclude infection with M. tuberculosis. ??In patients at high risk for M. tuberculosis infection, a second test should be considered. TB1 Ag minus Nil 0.00 IU/ml 02/13/20 24 12:35 EDT [facility] TB2 Ag minus Nil 0.01 IU/mL 02/13/20 12:35 EDT [facility] Blood VENOUS BLOOD / Unknown 02/10/2024 16:06 EDT 02/13/2024 12:25 EDT Provider Outr Resulting Lab IMMUNOLOGY A ND SEROLOGY ORDERABLES Performing Organization Address City/[facility]/ZIP Co de Phone Number [facility] [address] [place] [address] * HEPATITIS C AB W REFLEX TO HCV RNA BY PCR (02/10/2024 16:06 EDT) Hep C Antibody Negative Negative 02/10/2024 23:14 EDT [facility] Blood VENOUS BLOOD / Unknown 02/10/2024 16:06 EDT 02/10/2024 21:16 EDT Provider Outr Resulting Lab CHEMISTRY & BLOOD GAS ORDERABLES Performing Organization Address [facility]/ZIP Co de Phone Number [facility] [address] [place] [address] * HEPATITIS B CORE ANTIBODY (TOTAL) (02/10/2024 16:06 EDT) Hepatitis B Core Ab, Total Negative Negative 02/10/2024 23:16 EDT [facility] Blood VENOUS BLOOD / Unknown 02/10/2024 16:06 EDT 02/10/2024 21:16 EDT Provider Outr Resulting Lab CHEMISTRY & BLOOD GAS ORDERABLES Performing Organization Address City/[facility]/ZIP Co de Phone Number [facility] [address] [place] [address] * HEPATITIS B SURFACE ANTIBODY (02/10/2024 16:06 EDT) Hep B Surface Ab, Quantitative <3.1 See Note mIU/mL 02/10/2024 22:29 EDT [facility] Comment: Reference Range for Hep B Surface Ab, Quant: Positive: >= 10.0 mIU/mL Negative: ??< 10.0 mIU/mL Patient is presumed to not be immune to infection with Hepatitis B Virus. Hep B Surface Ab, Qualitative Negative See Note 02/10/2024 22:29 EDT [facility] Comment: Reference Range for Hep B Surface Ab, Qual: Unvaccinated: ??Negative Vaccinated: ??Positive Blood VENOUS BLOOD / Unknown 02/10/2024 16:06 EDT 02/10/2024 21:16 EDT Provider Outr Resulting Lab CHEMISTRY & BLOOD GAS ORDERABLES Performing Organization Address [facility]/ZIP Co de Phone Number [facility] [address], [place] [phone] * HEPATITIS B SURFACE ANTIGEN (02/10/2024 16:06 EDT) Hep B Surface Ag Negative Negative 02/10/2024 22:39 EDT [facility] Blood VENOUS BLOOD / Unknown 02/10/2024 16:06 EDT 02/10/2024 21:16 EDT Provider Outr Resulting Lab CHEMISTRY & BLOOD GAS ORDERABLES Performing Organization Address City/[facility] Co de Phone Number [facility] [address] [place], [place] [address] from Last 3 Months Care Teams Hand Scraper Relationship Specialty Start Date End Date Lori Basurto [address] [place] [address] PCP - General Internal Medicine - Primary Care 07/07/20
--- OUTSIDE RECORDS SUMMARY | 2024-03-30 18:45 | XMS_ITS | Encounter Summary ---
Author Organization [facility] Address [address] [place] [address] Care Team Providers Care Radiation Protection Technician Name Role Phone Lori Basurto Primary Care Provider [phone] Encounter Details Date Type Department Care Team (Late st Contact Info) Description 02/10/2024 Lab Requisition [facility] Pathology & Laboratory Medicine - [address] [address] Outr Resulting Lab, Provider Social History Tobacco Use Types Packs/Day Years Used Date Smoking Tobacco: Never Assessed Sex and Gender Information Value Date Recorded Sex Assigned at Not on file Gender Identity Not on file Sexual Orientation Not on file documented as of this encounter Plan of Treatment Not on file documented as of this encounter Procedures Procedure Name Priority Date/Time Associated Diagnosis Comments QUANTIFERON MITOGEN (PERFORMABLE) Today 02/10/2024 16:06 EDT QUANTIFERON TB2 (PERFORMABLE) Today 02/10/2024 16:06 EDT QUANTIFERON TB1 (PERFORMABLE) Today 02/10/2024 16:06 EDT QUANTIFERON NIL (PERFORMABLE) Today 02/10/2024 16:06 EDT QUANTIFERON INTERPRETATION (PERFORMABLE) Today 02/10/2024 16:06 EDT QUANTIFERON TB GOLD PLUS Routine 02/10/2024 16:06 EDT documented in this encounter Results * QUANTIFERON INTERPRETATION (PERFORMABLE) (02/10/2024 16:06 EDT) Quantiferon Interpretation Negative Negative 02/13/2024 12:35 EDT [facility] Comment:No interferon-gamma response to M. tuberculosis antigens was detected. ??Infection with M. tuberculosis is unlikely. A single negative result does not exclude infection with M. tuberculosis. ??In patients at high risk for M. tuberculosis infection, a second test should be considered. TB1 Ag minus Nil 0.00 IU/ml 02/13/20 24 12:35 EDT [facility] TB2 Ag minus Nil 0.01 IU/mL 02/13/20 12:35 EDT [facility] Blood VENOUS BLOOD / Unknown 02/10/2024 16:06 EDT 02/13/2024 12:25 EDT Provider Outr Resulting Lab IMMUNOLOGY A ND SEROLOGY ORDERABLES Performing Organization Address City/[facility] Co de Phone Number [facility] [address] [place] [address] * QUANTIFERON MITOGEN (PERFORMABLE) (02/10/2024 16:06 EDT) Blood VENOUS BLOOD / Unknown 02/10/2024 16:06 EDT 02/11/2024 21:39 EDT Provider Outr Resulting Lab IMMUNOLOGY A ND SEROLOGY ORDERABLES Performing Organization Address [facility] Co de Phone Number [facility] [address] [place] [address] * QUANTIFERON TB2 (PERFORMABLE) (02/10/2024 16:06 EDT) Blood VENOUS BLOOD / Unknown 02/10/2024 16:06 EDT 02/11/2024 21:39 EDT Provider Outr Resulting Lab IMMUNOLOGY A ND SEROLOGY ORDERABLES Performing Organization Address City/[facility]/ZIP Co de Phone Number [facility] [address] [place] [address] * QUANTIFERON TB1 (PERFORMABLE) (02/10/2024 16:06 EDT) Blood VENOUS BLOOD / Unknown 02/10/2024 16:06 EDT 02/11/2024 21:39 EDT Provider Outr Resulting Lab IMMUNOLOGY A ND SEROLOGY ORDERABLES Performing Organization Address [facility] Co de Phone Number [facility] [address] [place], [place] [address] * QUANTIFERON NIL (PERFORMABLE) (02/10/2024 16:06 EDT) Blood VENOUS BLOOD / Unknown 02/10/2024 16:06 EDT 02/11/2024 21:39 EDT Provider Outr Resulting Lab IMMUNOLOGY A ND SEROLOGY ORDERABLES Performing Organization Address City/[facility] Co de Phone Number [facility] [address] [place], [place] [address] documented in this encounter Visit Diagnoses Not on filedocumented in this encounter Care Teams Radiation Protection Technician Relationship Specialty Start Date End Date Lori Basurto [address] [place] [address] PCP - General Internal Medicine - Primary Care 07/07/20 documented as of this encounter
--- OUTSIDE RECORDS SUMMARY | 2024-03-30 18:45 | XMS_ITS | Encounter Summary ---
Author Organization [facility] Address [address] [place] [address] Care Team Providers Care Blacksmith Supervisor Name Role Phone Lori Basurto Primary Care Provider Encounter Details Date Type Department Care Team (Late st Contact Info) Description 02/10/2024 Lab Requisition [facility] Pathology & Laboratory Medicine - [address] [id number] Outr Resulting Lab, Provider Social History Tobacco [...] Procedure Name Priority Date/Time Associated Diagnosis Comments HEPATITIS B CORE ANTIBODY (TOTAL) Routine 02/10/2024 16:06 EDT documented in this encounter Results * HEPATITIS B CORE ANTIBODY (TOTAL) (02/10/2024 16:06 EDT) Hepatitis B Core Ab, Total Negative Negative 02/10/2024 23:16 EDT [facility] Blood VENOUS BLOOD / Unknown 02/10/2024 16:06 EDT 02/10/2024 21:16 EDT Provider Outr Resulting Lab CHEMISTRY & BLOOD GAS ORDERABLES [facility] [address] [place] [address] documented in this encounter Visit Diagnoses Not on filedocumented in this encounter Care Teams Blacksmith Supervisor Relationship Specialty Start Date End Date Lori Basurto [address] [place] [address] PCP - General Internal Medicine - Primary Care 07/07/20 documented as of this encounter
--- OUTSIDE RECORDS SUMMARY | 2024-03-30 18:45 | XMS_ITS | Referral Summary ---
Author Organization [facility] Address [address] [place] [address] Care Team Providers Care Clinical Law Professor Name Role Phone Lori Basurto Primary Care Provider [phone] Encounters Date Type Department Care Team Description 02/10/2024 Lab Requisition [facility] Pathology & Laboratory [address] [address] Outr Resulting Lab, Provider 02/10/2024 Lab Requisition [facility] Pathology & Laboratory [address] [address] Outr Resulting Lab, Provider 02/10/2024 Lab Requisition [facility] [address] [address] Outr Resulting Lab, Provider 02/10/2024 Lab Requisition [facility] Pathology Laboratory [address] [address] Outr Resulting Lab, Provider 02/10/2024 Lab Requisition [facility] Pathology & Laboratory [address] [address] Outr Resulting Lab, Provider from Last 3 Months Social History Tobacco Use Types Packs/Day Years Used Date Smoking Tobacco: Never Assessed Sex and Gender Information Value Date Recorded Sex Assigned at Not on file Gender Identity Not on file Sexual Orientation Not on file Plan of Treatment Not on file Procedures Procedure Name Priority Date/Time Associated Diagnosis [...] A ND SEROLOGY ORDERABLES Performing Organization Address [facility] Co de Phone Number [facility] [address] [place] [address] * QUANTIFERON TB2 (PERFORMABLE) (02/10/2024 16:06 EDT) Blood VENOUS BLOOD / Unknown 02/10/2024 16:06 EDT 02/11/2024 21:39 EDT Provider Outr Resulting Lab IMMUNOLOGY A ND SEROLOGY ORDERABLES Performing Organization Address [facility]/ZIP Co de Phone Number [facility] [address] [place], [place] [id number] * QUANTIFERON TB1 (PERFORMABLE) (02/10/2024 16:06 EDT) Blood VENOUS BLOOD / Unknown 02/10/2024 16:06 EDT 02/11/2024 21:39 EDT Provider Outr Resulting Lab IMMUNOLOGY A ND SEROLOGY ORDERABLES Performing Organization Address [facility]/ZIP Co de Phone Number [facility] [address] [place] [address] * QUANTIFERON NIL (PERFORMABLE) (02/10/2024 16:06 EDT) Blood VENOUS BLOOD / Unknown 02/10/2024 16:06 EDT 02/11/2024 21:39 EDT Provider Outr Resulting Lab IMMUNOLOGY A ND SEROLOGY ORDERABLES Performing Organization Address [facility] de Phone Number [facility] [address] [place], [place] [id number] * QUANTIFERON INTERPRETATION (PERFORMABLE) (02/10/2024 16:06 EDT) [facility] Quantiferon Interpretation Negative Negative 02/13/2024 12:35 EDT [facility] Comment:No interferon-gamma response to M. tuberculosis antigens was detected. ??Infection with M. tuberculosis is unlikely. A single negative result does not exclude infection with M. tuberculosis. ??In patients at high risk for M. tuberculosis infection, a second test should be considered. TB1 Ag minus Nil 0.00 IU/ml 02/13/20 24 12:35 EDT [facility] TB2 Ag minus Nil 0.01 IU/mL 02/13/20 24 12:35 EDT [facility] Blood VENOUS BLOOD / Unknown 02/10/2024 16:06 EDT 02/13/2024 12:25 EDT Provider Outr Resulting Lab IMMUNOLOGY A ND SEROLOGY ORDERABLES Performing Organization Address [facility] Co de Phone Number [facility] [address] [place], [place] [address] * HEPATITIS C AB W REFLEX TO HCV RNA BY PCR (02/10/2024 16:06 EDT) Hep C Antibody Negative Negative 02/10/2024 23:14 EDT [facility] Blood VENOUS BLOOD / Unknown 02/10/2024 16:06 EDT 02/10/2024 21:16 EDT Provider Outr Resulting Lab CHEMISTRY & BLOOD GAS ORDERABLES Performing Organization Address [facility]/ZIP Co de Phone Number [facility] [address] [place] [address] * HEPATITIS B CORE ANTIBODY (TOTAL) (02/10/2024 16:06 EDT) Pathologist [facility] Hepatitis B Core Ab, Total Negative Negative 02/10/2024 23:16 EDT [facility] Blood VENOUS BLOOD / Unknown 02/10/2024 16:06 EDT 02/10/2024 21:16 EDT Provider Outr Resulting Lab CHEMISTRY & BLOOD GAS ORDERABLES Performing Organization Address City/[facility] Co de Phone Number [facility] [address] [place] [address] * HEPATITIS B SURFACE ANTIBODY (02/10/2024 16:06 EDT) Pathologist [facility] Hep B Surface Ab, Quantitative <3.1 See Note mIU/mL 02/10/2024 22:29 EDT [facility] Comment: Reference Range for Hep B Surface Ab, Quant: Positive: >= 10.0 mIU/mL Negative: ??< 10.0 mIU/mL Patient is presumed to not be immune to infection with Hepatitis B Virus. Hep B Surface Ab, Qualitative Negative See Note 02/10/2024 22:29 EDT [facility] Comment: Reference Range for Hep B Surface Ab, Qual: Unvaccinated: ??Negative Vaccinated: ??Positive Blood VENOUS BLOOD / Unknown 02/10/2024 16:06 EDT 02/10/2024 21:16 EDT Provider Outr Resulting Lab CHEMISTRY & BLOOD GAS ORDERABLES Performing Organization Address City/[facility] Co de Phone Number [facility] [address] [place] [address] * HEPATITIS B SURFACE ANTIGEN (02/10/2024 16:06 EDT) Hep B Surface Ag Negative Negative 02/10/2024 22:39 EDT [facility] Blood VENOUS BLOOD / Unknown 02/10/2024 16:06 EDT 02/10/2024 21:16 EDT Provider Outr Resulting Lab CHEMISTRY & BLOOD GAS ORDERABLES Performing Organization Address [facility] Co de Phone Number [facility] [address] [place] [address] from Last 3 Months Care Teams Clinical Law Professor Relationship Specialty Start Date End Date Lori Basurto [address] [place] [address] PCP - General Internal Medicine - Primary Care 07/07/20
--- OUTSIDE RECORDS SUMMARY | 2024-03-30 18:45 | XMS_ITS | Encounter Summary ---
Author Organization [facility] Address [address] [place] [address] Care Team Providers Care Nursing Assoc Name Role Phone Lori Basurto Primary Care Provider [phone] Encounter Details Date Type Department Care Team (Late st Contact Info) Description 02/10/2024 Lab Requisition [facility] Pathology & Laboratory Medicine - [address] [id number] Outr Resulting Lab, Provider Social History Tobacco [...] Priority Date/Time Associated Diagnosis Comments HEPATITIS B SURFACE ANTIGEN Routine 02/10/2024 16:06 EDT documented in this encounter Results * HEPATITIS B SURFACE ANTIGEN (02/10/2024 16:06 EDT) Hep B Surface Ag Negative Negative 02/10/2024 22:[address] [facility] Blood VENOUS BLOOD / Unknown 02/10/2024 16:06 EDT 02/10/2024 21:16 EDT Provider Outr Resulting Lab CHEMISTRY & BLOOD GAS ORDERABLES [facility] [address] [place], [place] [address] documented in this encounter Visit Diagnoses Not on filedocumented in this encounter Care Teams Nursing Assoc Relationship Specialty Start Date End Date Lori Basurto [address] [place] [address] PCP - General Internal Medicine - Primary Care 07/07/20 documented as of this encounter
--- OUTSIDE RECORDS SUMMARY | 2024-03-30 18:45 | XMS_ITS | Encounter Summary ---
Author Organization [facility] Address [address] [place] [address] Care Team Providers Care Agent Contract Clerk Name Role Phone Lori Basurto Primary Care Provider [phone] Encounter Details Date Type Department Care Team (Late st Contact Info) Description 02/10/2024 Lab Requisition [facility] Pathology & Laboratory Medicine - [address] [address] Outr Resulting Lab, Provider Social History Tobacco [...] Date/Time Associated Diagnosis Comments HEPATITIS B SURFACE ANTIBODY Routine 02/10/2024 16:06 EDT documented in this encounter Results * HEPATITIS B SURFACE ANTIBODY (02/10/2024 16:06 EDT) Hep B Surface Ab, Quantitative <3.1 See Note mIU/mL 02/10/2024 22:[address] [facility] Comment: Reference Range for Hep B Surface Ab, Quant: Positive: >= 10.0 mIU/mL Negative: ??< 10.0 mIU/mL Patient is presumed to not be immune to infection with Hepatitis B Virus. Hep B Surface Ab, Qualitative Negative See Note 02/10/2024 22:[address] [facility] Comment: Reference Range for Hep B Surface Ab, Qual: Unvaccinated: ??Negative Vaccinated: ??Positive Blood VENOUS BLOOD / Unknown 02/10/2024 16:06 EDT 02/10/2024 21:16 EDT Provider Outr Resulting Lab CHEMISTRY & BLOOD GAS ORDERABLES Performing Organization Address City/State/[facility] Co de Phone Number [facility] [address] [place], [place] [phone] documented in this encounter Visit Diagnoses Not on filedocumented in this encounter Care Teams Agent Contract Clerk Relationship Specialty Start Date End Date Lori Basurto [address] [place] [address] PCP - General Internal Medicine - Primary Care 07/07/20 documented as of this encounter
--- OUTSIDE RECORDS SUMMARY | 2024-03-30 18:45 | XMS_ITS ---
Author Organization Unknown Address [address] [place] [phone] Phone Care Team Providers Care Family Resource Coordinator Name Role Phone NANCY MCNAMARA Attending Unavailable IGNACIO Weldon Primary Unavailable Results QUANTIFERON TEST FOR TB UVMM C - Collect Date/Time: 02/10/2024 16:06 [facility] ID: [id number] [address] [place], [place], [phone] LOINC: 65970-6 Test Value Unit Reference Range Code Code System Flag TB Interpretation Negative Negative TB1 Ag minus Nil 0.00 IU/ml TB2 Ag minus Nil 0.01 IU/mL LIPID PANEL* - Collect Date/ Time: 02/10/2024 16:06 [facility] ID: [id number] [address] [place] [address], [phone] LOINC: Test Value Unit Reference Range Code Code System Flag FASTING STATUS: NON FASTING CHOLESTEROL 171 mg/dL L=0 H=200 2093-3 LOINC TRIGLYCERIDES 115 mg/dL L=56 H=318 2571-8 LOINC HDL 43 mg/dL L=27 H=67 2085-9 LOINC non-HDL-C 128 mg/dL L=0 H=160 41946-7 LOINC LDL (CALC) 105 mg/dL L=0 H=130 70277-8 LOINC % HDL 25.1 % Chol/HDL Ratio 4.0 L=0.0 H=4.9 9830-1 LOINC CHD Relative Risk 0.8 x Avg L=0.0 H=1.0 LDL/HDL Ratio 2.4 L=0.0 H=3.5 48412-6 LOINC CHD Relative Risk. 0.7 x Avg L=0.0 H=1.0 HEP C ANTIBODY WITH REFLEX P CR - Collect Date/Time: 02/10/2024 16:06 [facility] ID: [id number] [address] [place], [place], [id number] LOINC: 29114-5 Test Value Unit Reference Range Code Code System Flag Hep C Ab w Rfx PCR Negative Negative HEP B SURF ANTIGEN* - Collec t Date/Time: 02/10/2024 16:06 [facility] ID: [id number] [address] [place] [address], [phone] LOINC: 5196-1 Test Value Unit Reference Range Code Code System Flag Hep B Surface Ag Negative Negative HEP B SURF ANTIBODY* - Colle ct Date/Time: 02/10/2024 16:06 [facility] ID: [id number] [address] [place] [address], [id number] LOINC: 02935-6 Test Value Unit Reference Range Code Code System Flag Hep B Surface Ab Negative See Note HBs Antibody, Quant < 3.1 mIU/mL See Note HEP B CORE ANTIBODY TOTAL - Collect Date/Time: 02/10/2024 16:06 [facility] ID: [id number] [address] [place] [address], [phone] LOINC: 36931-5 Test Value Unit Reference Range Code Code System Flag Hep B Core Antibody Negative Negative HEPATIC FUNCTION PANEL - Col lect Date/Time: 02/10/2024 16:06 [facility] ID: [id number] [address] [place] [address], [id number] LOINC: 19630-1 Test Value Unit Reference Range Code Code System Flag ALBUMIN 3.6 gm/dL L=3.4 H=5.0 1751-7 LOINC TOTAL PROTEIN 6.8 gm/dL L=6.0 H=8.0 2885-2 LOINC BILIRUBIN TOTAL 0.2 mg/dL L=0.0 H=1.3 1975-2 LOINC BILIRUBIN DIRECT 0.10 mg/dL L=0.00 H=0.50 1971-1 LOINC SGOT (AST) 28 U/L L=15 H=37 1920-8 LOINC SGPT (ALT) 41 U/L L=12 H=78 1742-6 LOINC ALK. PHOS. 79 U/L L=46 H=116 6768-6 LOINC CBC W/ DIFFERENTIAL* - Colle ct Date/Time: 02/10/2024 16:06 [facility] ID: [id number] [address] [place], [place], [address] LOINC: 61534-7 Test Value Unit Reference Range Code Code System Flag WBC 5.84 th/cmm L=5.00 H=10.00 6690-2 LOINC NEUT % 50.3 % L=40.0 H=80.0 LYMPH % 34.6 % L=10.0 H=50.0 MONO % 10.3 % L=2.0 H=12.0 74591-5 LOINC EOS % 3.9 % L=0.0 H=8.0 BASO % 0.7 % L=0.0 H=3.0 IG % 0.2 % L=0.0 H=1.1 2514-8 LOINC NRBC % 0.0 % L=0.0 H=0.0 10999-8 LOINC NEUT abs count 2.9 th/cmm L=1.6 H=8.4 751-8 LOINC LYMPH abs count 2.0 th/cmm L=1.5 H=4.0 731-0 LOINC MONO abs count 0.6 th/cmm L=0.2 H=1.0 742-7 LOINC EOS abs count 0.2 th/cmm L=0.0 H=0.5 711-2 LOINC BASO abs count 0.0 th/cmm L=0.0 H=0.2 704-7 LOINC IG abs count 0.0 th/cmm L=0.0 H=0.1 17533-6 LOINC NRBC abs count 0.0 mil/cmm L=0.0 H=0.0 61020-8 LOINC RBC 5.21 mil/cmm L=4.30 H=6.20 789-8 LOINC HEMOGLOBIN 15.4 gm/dL L=13.0 H=17.0 718-7 LOINC HEMATOCRIT 46 % L=45 H=52 4544-3 LOINC MCV 87 fL L=82 H=92 787-2 LOINC MCH 29.6 pg L=27.0 H=31.0 785-6 LOINC MCHC 33.8 % L=32.0 H=36.0 786-4 LOINC RDW-SD 42.3 fL L=39.0 H=49.0 788-0 LOINC PLATELET COUNT 244 th/cmm L=150 H=450 777-3 LOINC BASIC METABOLIC PANEL (BMP) - Collect Date/Time: 02/10/2024 16:06 [facility] ID: [id number] [address] [place] [address], [address] LOINC: 64108-3 Test Value Unit Reference Range Code Code System Flag GLUCOSE 115 mg/dL L=70 H=116 2345-7 LOINC BUN 15 mg/dL L=6 H=25 3094-0 LOINC CREATININE 1.38 mg/dL L=0.67 H=1.17 2160-0 LOINC H SODIUM SERUM 141 mmol/L L=136 H=145 2951-2 LOINC POTASSIUM SERUM 3.9 mmol/L L=3.4 H=5.2 2823-3 LOINC CHLORIDE SERUM 104 mmol/L L=96 H=110 2075-0 LOINC CARBON DIOXIDE (CO2) 27 mmol/L L=22 H=34 2028-9 LOINC ANION GAP 9.6 mmol/L 15769-2 LOINC CALCIUM SERUM 8.7 mg/dL L=8.2 H=10.2 01339-9 LOINC AGE 48 years eGFR (non-Afr.Amer.) 55 mL/min 43560-4 [facility] eGFR (Afr-Togolese) 67 mL/min 98018-5 [facility] Social History Type Status Start Date End Date Code Code Syst em Smoking History Current some day smoker [id number] SNOMED CT Smoking History Unknown if ever smoked 597884096 SNOMED CT Sex Male Medications Medication Start Date End Date Route Frequency Dose Code Code System Medication Instructions Home Meds Penicillin VK 500MG Oral Tablet 06/16/2023 Unknown ORAL THREE TIMES A DAY 1 TABLET 070631 RxNorm TAKE 1 TABLET ORAL THREE TIMES A DAY Hospital Discharge Instructions Should you have any questions prior to discharge, please contact a member of your healthcare team. If you have left the hospital and have any questions, please contact your primary care physician. Reason For Referral No Data Found Problems Problem Start Date Resolved Date Status Code Code System PSORIASIS 03/15/2023 resolved 9988372 SNOMED-CT Allergies and Adverse Reactions Allergy Substance Reaction Severity Start Date Concern Status Co de Code System No Known Drug Allergies Active 994130494 SNOMED-CT Plan of Treatment No Data Found Encounters Encounter Diagnosis Start Date Code Code Sys tem Psoriasis vulgaris 02/10/2024 892985664 SNOMED-CT Personal Care Team Section Performer Name Performer Role Active Date Inactive Da zev
--- OUTSIDE RECORDS SUMMARY | 2024-03-30 18:45 | XMS_ITS ---
Author Organization Unknown Address [address] [place] [phone] Phone Care Team Providers Care Sprinkler Inspector Name Role Phone AKANKSHA Blanco Attending Unavailable IGNACIO Weldon Primary Unavailable Social History Type Status Start Date End Date Code Code Syst em Smoking History Current some day smoker 062089815162190 SNOMED CT Smoking History Unknown if ever smoked 008896785 SNOMED CT Sex Male Vital Signs Vital Sign Value Unit Laurens Value Laurens Unit Date/Time Recent/Initial? Code Code System Systolic Blood Pressure 107 mm[Hg] 11/29/2023 15:34 Initial 8480-6 LOINC Diastolic Blood Pressure 75 mm[Hg] 11/29/2023 15:34 Initial 8462-4 LOINC O2 Saturation 95 % 2023 15:34 Initial 33323- 5 LOINC Pulse 85.0 /min 11/29/2023 15:34 Initial 8867-4 LOINC Respiration 12 /min 11/29/19 24 15:34 Initial 9279-1 LOINC Temperature 36.5 Citlali 97.7 F 11/29/19 24 15:34 [facility] 8310[facility]ations Medication Start Date End Date Route Frequency Dose Code Code System Medication Instructions Home Meds Penicillin VK 500MG Oral Tablet 06/16/2023 Unknown ORAL THREE TIMES A DAY 1 TABLET 795867 RxNorm TAKE 1 TABLET ORAL THREE TIMES A DAY Hospital Discharge Instructions Should you have any questions prior to discharge, please contact a member of your healthcare team. If you have left the hospital and have any questions, please contact your primary care physician. Reason For Referral No Data Found Procedures Procedure Name Date Status Code Code Syste m Colonoscopy, Flexible, Proxi mal To Splenic Flexure; w/Bx, Single/Multiple 11/29/2023 completed 02141 C PT Problems Problem Start Date Resolved Date Status Code Code System PSORIASIS 03/15/2023 resolved 9342751 SNOMED-CT Allergies and Adverse Reactions Allergy Substance Reaction Severity Start Date Concern Status Co de Code System No Known Drug Allergies Active 756052773 SNOMED-CT Plan of Treatment No Data Found Encounters Encounter Diagnosis Start Date Code Code Sys tem Encounter for screening for malignant neoplasm of colo n 11/29/2023 SNOMED-CT Personal Care Team Section Performer Name Performer Role Active Date Inactive Da te
--- OUTSIDE RECORDS SUMMARY | 2024-03-30 18:45 | XMS_ITS | Encounter Summary ---
Author Organization [facility] Address [address] [place] [address] Care Team Providers Care Asphalt Roller Operator Name Role Phone Lori Basurto Primary Care Provider [phone] Encounter Details Date Type Department Care Team (Late st Contact Info) Description 02/10/2024 Lab Requisition [facility] Pathology & Laboratory Medicine - [address] [address] Outr Resulting Lab, Provider Social History Tobacco [...] Name Priority Date/Time Associated Diagnosis Comments HEPATITIS C AB W REFLEX TO HCV RNA BY PCR Routine 02/10/2024 16:06 EDT documented in this encounter Results * HEPATITIS C AB W REFLEX TO HCV RNA BY PCR (02/10/2024 16:06 EDT) Hep C Antibody Negative Negative 02/10/2024 23:14 EDT [facility] Blood VENOUS BLOOD / Unknown 02/10/2024 16:06 EDT 02/10/2024 21:16 EDT Provider Outr Resulting Lab CHEMISTRY & BLOOD GAS ORDERABLES [facility] [address] [place] [address] documented in this encounter Visit Diagnoses Not on filedocumented in this encounter Care Teams Asphalt Roller Operator Relationship Specialty Start Date End Date Lori Basurto [address] [place] [address] PCP - General Internal Medicine - Primary Care 07/07/20 documented as of this encounter
--- OUTSIDE RECORDS SUMMARY | 2024-03-30 18:46 | XMS_ITS | Encounter Summary ---
Author Organization [facility] Address [address] [place] [address] Care Team Providers Care Motor Setter Name Role Phone Unavailable Primary Care Provider Unavailabl e Encounter Details Date Type Department Care Team (Late st Contact Info) Description 12/08/2007 Before PRISM Converted Visit (Maple) [facility] - Maple conversion [address] [place] [address] Ta Grace MD [address] [facility], [address] [place] [phone] Social History Tobacco Use Types Packs/Day Years Used Date Smoking Tobacco: Never Assessed Sex and Gender Information Value Date Recorded Sex Assigned at Not on file Gender Identity Not on file Sexual Orientation Not on file documented as of this encounter Progress Notes * Ta Grace MD - 04/25/2009 1002 EDT DIVISION OF DERMATOLOGY PROGRESS/FOLLOWUP NOTE - 12/08/2007 SUBJECTIVE This is the first visit in over three years for Mr. Manzo who presents with a dramatic flare of psoriasis. Basically over the last several weeks after a cold he has had an explosion of psoriasis over about 90% of his body surface area. He has not noted any fever or joint stiffness with this. He is currently only taking occasional Tylenol. He had used some topical ultra potent steroid over the last few days and this has helped a bit but has not gotten rid of the psoriasis by any means. He has been on methotrexate in the past which he actually tolerated quite well. He had mild LFT abnormalities while on the methotrexate but never with any values over 100. At the time he had an occasional drink here and there but he notes that he is actually a very light drinker and would be willing to stop completely. PAST MEDICAL HISTORY Essentially unremarkable other than for occasional episodes of fairly substantial psoriasis. He hasno recent hospitalizations or surgeries. REVIEW OF SYSTEMS He has noted no weight loss nor fatigue and has a negative review of systems for cardiac issues, pulmonary issues, gastrointestinal issues, renal issues, muscles and joints, endocrine issues, psychological issues, and infection. 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 He smokes three-quarters of a pack a day. He is . He drinks very lightly and is willing to stop. FAMILY HISTORY He has both a father and brother with psoriasis and mother with eczema. OBJECTIVE On physical examination a detailed full body skin exam is performed today of the face, neck, chest,back, upper and lower extremities, and scalp. This reveals diffuse scaling red plaques over 90% of the body surface area. His nails demonstrate stigmata of psoriasis. His head and neck exam is benign. His eyes are not injected and his throat appears normal. ASSESSMENT Severe flare of psoriasis with 90% body surface area involvement. PLAN We discussed the various treatment options which would include light therapy, oral medication, and injectable/biologic therapy. Given that he had a very good response in the past to methotrexate withclearing and diminution of psoriasis for almost four years we elected to start him on methotrexate at a dose of 15 mg weekly which is what he took in the past. I ordered labs for a baseline today andthese will be repeated in 10days. He is going to take his medication on Fridays and have his labs drawn on Tuesdays. I am going to turn his care over to Dr. Erika Rangel who will see him in one month and who can then follow him at [facility] since he is from [place]. He used to do this withDrPratibha Alexis. I noted to him that he cannot drink while on methotrexate and he agrees to this. He notes that he can have his labs done at [facility] on a regular basis. I discussed with him specifically that he cannot take Bactrim and needs todiscuss other sulfa and similar medications with any physicianwho would prescribe these. Also I warned him specifically regarding nonsteroidal anti-inflammatories and told him even to limit his Tylenol intake while on methotrexate. We are going to plan to have him have his blood work forwarded to us in 10 days. Signed by Ta Grace MD 12/13/2007 13:43 Ta Grace MD - MD Sanjay - [place] Job ID: [id number] Doc ID: [id number] cc: MD Alysia Deshpande FNP Kathryn Schwarzenberger, MD - Ta Grace MD - george Job ID: [id number] Doc ID: [id number] cc: MD Alysia Deshpande FNP Kathryn Schwarzenberger, MD documented in this encounter Plan of Treatment Not on file documented as of this encounter Visit Diagnoses Not on filedocumented in this encounter
--- OUTSIDE RECORDS SUMMARY | 2024-03-30 18:46 | XMS_ITS | Encounter Summary ---
Author Organization [facility] Address [address] [place] [address] Care Team Providers Care Tile Sprayer Name Role Phone Unavailable Primary Care Provider Unavailabl e Encounter Details Date Type Department Care Team (Late st Contact Info) Description 01/02/2008 Before PRISM Converted Visit (Maple) [facility] - Maple conversion [address] [place] [address] Panfilo Blount MD [address] [place] [phone] Social History Tobacco Use Types Packs/Day Years Used Date Smoking Tobacco: Never Assessed Sex and Gender Information Value Date Recorded Sex Assigned at Not on file Gender Identity Not on file Sexual Orientation Not on file documented as of this encounter Progress Notes * Panfilo Blount - 04/25/2009 1023 EDT DIVISION OF DERMATOLOGY PROGRESS/FOLLOWUP NOTE - 01/02/2008 CHIEF COMPLAINT Psoriasis, on methotrexate, responding well. SUBJECTIVE This is a followup visit for this patient who was last seen in the Dermatology Clinic on 12/08/2007. At that time, he saw Dr. Grace and he was having a significant flare of his psoriasis. Dr. Grace did initiate methotrexate. He has been tolerating that medicine well, and his laboratory values have been normal, but he is now up to a total dose of 15 mg a week and he has had a dramatic improvement in psoriasis. He is not abstainingfrom alcohol. He previously would have perhaps, over the course of a month, 24 beers although he did not drink regularly, just intermittently he would have a few beers. He is aware he cannot do that while on methotrexate. He is not using anything topically and does request a topical steroid as those have also helped in the past. CURRENT MEDICATIONS Solely the methotrexate 2.5 mg 6 pills each week. REVIEW OF SYSTEMS Constitutional: No fever or chills. Eyes: No dryness or redness. Ear, nose, and throat: No sore throat. No mouth sores. Integumentary: Improving psoriasis. Cardiovascular: No chest pain. Respiratory:No shortness of breath. Gastrointestinal: No nausea, vomiting, or diarrhea. Endocrine: No heat or cold intolerance. Musculoskeletal: No joint pain, no joint swelling, no muscle pain. Genitourinary: No difficulty with urination. Hematologic/lymphatic: No easy bleeding or bruising. Allergic/immunologic: No recent infections. No new diagnoses of cancer. Patient has had no interval health status change. No constitutional symptoms today or any other complaints referable to the skin. OBJECTIVE He is a well-appearing white man in no acute distress. Blood pressure is 138/68, temperature is 98.7, pulse is 76.The scalp, face, neck, back, chest, abdomen, intertriginous areas and extremities were examined. Covering nearly 90% of his body he only has very thin remaining areas of erythema with practically no scale. He does have some lichenification in his antecubital fossae bilaterally. His most recent lab work from 12/18 shows a normal CBC with differential as well as a normal CMP. ASSESSMENT Psoriasis, responding well to methotrexate. PLAN 1. The above diagnosis was discussed. Specifically we discussed our recommendation to continue his methotrexate at 15 mg each week. A prescription for methotrexate 2.5 mg tablets #24 with instructions to take 6 p.o. each week was given with five refills. 2. For topical steroid, we prescribed triamcinolone 0.1% cream, one-pound jar with instructions to apply twice a day but to avoid the face and skin folds, with two refills. 3. We recommended folic acid 1 mg each day and a prescription for a year was given. 4. He has no history of hepatitis B or C, although we will go ahead and draw hepatitis B and C serologies today. 5. We will also draw another set of methotrexate monitoring labs including an AST, ALT, creatinine,total bili, albumin, alk phos, CBC with diff, and after this draw if normal we will have this routine panel drawn on a monthly basis for the next three months. 6. He is aware he should not attempt to get anyone while on this medication, and he and his have no plans to do that at this point. 7. Followup will be scheduled in six months or sooner if there are any other questions or concerns. saw and examined the patient with the resident/fellow. I agree with the findings and plan of care documented in the resident's/fellow's note. Signed by Erika Rangel MD 02/18/2008 13:12 Reviewed by Panfilo Blount MD 01/11/2008 17:43 Panfilo Blount MD Erika Rangel MD - MD Mine - [place] Job ID: [id number] Doc ID: [id number] cc: Jackson Nowak MD - Panfilo Blount MD - george Job ID: [id number] Doc ID: [id number] cc: Jackson Nowak MD documented in this encounter Plan of Treatment Not on file documented as of this encounter Visit Diagnoses Not on filedocumented in this encounter
--- OUTSIDE RECORDS SUMMARY | 2024-03-30 18:46 | XMS_ITS | Encounter Summary ---
Author Organization [facility] Address [address] [place] [address] Care Team Providers Care Cashier Clerk Name Role Phone Unavailable Primary Care Provider Unavailabl e Encounter Details Date Type Department Care Team (Late st Contact Info) Description 12/08/2007 Results Only [facility] Dermatology 5th Floor [address] [phone] Ta Grace MD [address] [facility], [address] [place] [phone] Social History Tobacco Use Types Packs/Day Years Used Date Smoking Tobacco: Never Assessed Sex and Gender Information Value Date Recorded Sex Assigned at Not on file Gender Identity Not on file Sexual Orientation Not on file documented as of this encounter Plan of Treatment Not on file documented as of this encounter Procedures Procedure Name Priority Date/Time Associated Diagnosis Comments COMPLETE BLOOD COUNT AND DIFFERENTIAL Routine 12/08/2007 9:07 EDT HEPATIC FUNCTION PANEL (ALB,ALK PHOS,ALT,AST,DBIL,TOT RAMON,TOT PROT) Routine 12/08/2007 9:07 EDT BASIC METABOLIC PANEL (BMP) Routine 12/08/2007 9:07 EDT documented in this encounter Results * (ABNORMAL) LIVER FUNCTION TESTS (12/08/2007 9:07 EDT) Albumin 3.9 3.4 - 4.9 g/dl [facility] Total Protein 6.3(L) 6.5 - 8.3 g/dl [facility] Total Alkaline Phosphatase 69 38 - 126 U/L [facility] ALT 38 21 - 72 U/L [facility] AST 28 15 - 46 U/L [facility] Unconjugated Bilirubin 0.2 0.1 - 1.1 mg/dl [facility] Conjugated Bilirubin 0.0 0.0 - 0.3 mg/dl [facility] Bilirubin, Total <0.5 0.2 - 1.3 mg/dl [facility] 12/08/2007 9:07 EDT 12/08/2007 9:09 EDT Ta Grace MD CHEMISTRY & BLOOD GAS ORDERABLES [facility] [address] [place] [address] * (ABNORMAL) HEMAGRAM AND DIFFERENTIAL (12/08/2007 9:07 EDT) WBC 7.34 4.0 - 10.4 K/cmm [facility] RBC 4.64 4.36 - 5.78 M/cmm [facility] Hemoglobin 13.8 13.8 - 17.3 gm/dl [facility] HCT 40.5 39.5 - 50.2 % [facility] MCV 87 81 - 95 fl [facility] MCH 29.7 27.6 - 33.0 pg [facility] MCHC 34.1 32.8 - 36.4 gm/dl [facility] PLT 247 141 - 320 K/cmm [facility] RDW-CV 14.1 11.8 - 14.1 % [facility] % Neutrophils 60.8 45.5 - 79.7 % [facility] % Lymphocytes 23.1 15.0 - 46.8 % [facility] % Monocytes 12.1(H) 1.8 - 12.0 % [facility] % Eosinophils 3.5 0.6 - 6.9 % [facility] % Basophils 0.5 0.2 - 1.4 % [facility] ABS Neutrophils 4.47 2.20 - 8.85 K/cmm [facility] ABS Lymphs 1.69 1.09 - 3.30 K/cmm [facility] ABS Monocytes 0.89(H) 0.1 - 0.8 K/cmm [facility] ABS Eosinophils 0.26 0.03 - 0.61 K/cmm [facility] ABS Basophils 0.04 0.01 - 0.11 K/cmm [facility] Type of Diff: Automated [facility] 12/08/2007 9:07 EDT 12/08/2007 9:09 EDT Ta Grace MD PACKAGES & DNA AZ OBE ORDERABLES Performing Organization Address [facility] Co de Phone Number [facility] [address] [place] [address] * (ABNORMAL) BASIC METABOLIC PANEL (12/08/2007 9:07 EDT) Sodium 141 136 - 145 mEq/L [facility] Potassium 4.3 3.5 - 5.0 mEq/L [facility] Chloride 108 96 - 110 mEq/L [facility] CO2 26 24 - 32 mEq/L [facility] BUN 9(L) 10 - 26 mg/dl [facility] Creatinine 0.82 0.7 - 1.5 mg/dl [facility] GFR, Calculated >60 ml/min/1.7 3m2 [facility] Calcium 9.0 8.5 - 10.5 mg/dl [facility] Calculated Calcium 9.5 8.5 - 10.5 mg/dl [facility] Glucose, Serum 96 70 - 100 mg/dl [facility] Fasting? No [facility] 12/08/2007 9:07 EDT 12/08/2007 9:09 EDT Ta Grace MD CHEMISTRY & BLOOD GAS ORDERABLES Performing Organization Address [facility] Co de Phone Number [facility] [address] [place] [address] documented in this encounter Visit Diagnoses Not on filedocumented in this encounter
--- OUTSIDE RECORDS SUMMARY | 2024-03-30 18:46 | XMS_ITS | Encounter Summary ---
Author Organization [facility] Address [address] [place] [address] Care Team Providers Care Rn Clinical Quality Name Role Phone Unavailable Primary Care Provider Unavailabl e Encounter Details Date Type Department Care Team (Late st Contact Info) Description 01/02/2008 13:58 EDT Hospital Encounter [facility] [address] [place] [address] Erika Rangel MD [address] [place] [phone] Social History Tobacco Use Types Packs/Day Years [...]
--- OUTSIDE RECORDS SUMMARY | 2024-03-30 18:46 | XMS_ITS | Encounter Summary ---
Author Organization [facility] Address [address] [place] [address] Care Team Providers Care Stone Gang Sawyer Name Role Phone Unavailable Primary Care Provider Unavailabl e Encounter Details Date Type Department Care Team (Late st Contact Info) Description 01/02/2008 Results Only [facility] Dermatology 5th Floor [facility] [address], [place] [id number] Erika Rangel MD [address] [place] [phone] Social History Tobacco Use Types Packs/Day Years Used Date Smoking Tobacco: Never Assessed Sex and Gender Information Value Date Recorded Sex Assigned at Not on file Gender Identity Not on file Sexual Orientation Not on file documented as of this encounter Plan of Treatment Not on file documented as of this encounter Procedures Procedure Name Priority Date/Time Associated Diagnosis Comments MTX PROFILE Routine 01/02/2008 15:16 EDT HEPATITIS C AB W REFLEX TO HCV RNA BY PCR Routine 01/02/2008 15:16 EDT HEPATITIS B SURFACE ANTIBODY Routine 01/02/2008 15:16 EDT HEPATITIS B SURFACE ANTIGEN Routine 01/02/2008 15:16 EDT documented in this encounter Results * HEPATITIS C ANTIBODY (01/02/2008 15:16 EDT) Hepatitis C Ab Neg [facility] 01/02/2008 15:1 6 EDT 01/02/2008 15:18 EDT Erika Rangel MD CHEMISTRY & B LOOD GAS ORDERABLES Performing Organization Address [facility] de Phone Number [facility] [address] [place] [address] * HEPATITIS B SURFACE ANTIGEN (01/02/2008 15:16 EDT) Hepatitis B Surface Ag Neg [facility] 01/02/2008 15:1 6 EDT 01/02/2008 15:18 EDT Erika Rangel MD CHEMISTRY & B LOOD GAS ORDERABLES Performing Organization Address [facility] de Phone Number [facility] [address] [place] [address] * HEPATITIS B SURFACE ANTIBODY (01/02/2008 15:16 EDT) Hepatitis B Surface Ab Neg [facility] 01/02/2008 15:1 6 EDT 01/02/2008 15:18 EDT Erika Rangel MD CHEMISTRY & B LOOD GAS ORDERABLES Performing Organization Address [facility] Phone Number [facility] [address] [place] [address] * (ABNORMAL) MTX PROFILE (01/02/2008 15:16 EDT) Albumin 4.6 3.4 - 4.9 g/dl [facility] Total Alkaline Phosphatase 79 38 - 126 U/L [facility] ALT 55 21 - 72 U/L [facility] AST 41 15 - 46 U/L [facility] WBC 10.96(H) 4.0 - 10.4 K/cmm [facility] RBC 4.83 4.36 - 5.78 M/cmm [facility] Hemoglobin 14.5 13.8 - 17.3 gm/dl [facility] HCT 41.9 39.5 - 50.2 % [facility] MCV 87 81 - 95 fl [facility] MCH 30.0 27.6 - 33.0 pg [facility] MCHC 34.6 32.8 - 36.4 gm/dl [facility] PLT 288 141 - 320 K/cmm [facility] RDW-CV 13.8 11.8 - 14.1 % [facility] Creatinine 0.89 0.7 - 1.5 mg/dl [facility] GFR, Calculated >60 ml/min/1. 73m2 [facility] Conjugated Bilirubin 0.0 0.0 - 0.3 mg/dl [facility] Unconjugated Bilirubin 0.5 0.1 - 1.1 mg/dl [facility] % Neutrophils 67.8 45.5 - 79.7 % [facility] % Lymphocytes 23.5 15.0 - 46.8 % [facility] % Monocytes 6.1 1.8 - 12.0 % [facility] % Eosinophils 2.3 0.6 - 6.9 % [facility] % Basophils 0.3 0.2 - 1.4 % [facility] ABS Neutrophils 7.43 2.20 - 8.85 K/cmm [facility] ABS Lymphs 2.57 1.09 - 3.30 K/cmm [facility] ABS Monocytes 0.67 0.1 - 0.8 K/cmm [facility] ABS Eosinophils 0.25 0.03 - 0.61 K/cmm [facility] ABS Basophils 0.03 0.01 - 0.11 K/cmm [facility] Type of Diff: Automated [facility] 01/02/2008 15:1 6 EDT 01/02/2008 15:18 EDT Erika Rangel MD PACKAGES & DN A PROBE ORDERABLES [facility] [address] [place] [address] documented in this encounter Visit Diagnoses Not on filedocumented in this encounter
--- OUTSIDE RECORDS SUMMARY | 2024-03-30 18:46 | XMS_ITS | Encounter Summary ---
Author Organization [facility] Address [address] [place] [address] Care Team Providers Care Pipe Supervisor Name Role Phone Unavailable Primary Care Provider Unavailabl e Encounter Details Date Type Department Care Team (Late st Contact Info) Description 12/08/2007 8:13 EDT Hospital Encounter [address] [address] Ta Grace MD [address] [facility], [address] [place] [phone] Social History Tobacco Use Types Packs/Day Years [...]
== END 2024-03-30 18:36 | disposition home or self-care (01) ==
LOC: NCHCN 18:35
PROVIDERS: PCP Internal Medicine; Visit Provider Internal Medicine
DX: Z00.00 Encounter for general adult medical examination without abnormal findings (principal)
CPT/HCPCS: 80053; 80061